=== PATIENT | male | born 1945 | race Caucasian/White ===

== ENCOUNTER 2016-11-19 11:30 | Outpatient (CLI) | payer MEDICARE | END 2016-11-19 11:31 | disposition home or self-care (01) | DX: E78.5 Hyperlipidemia, unspecified (principal) ==

== ENCOUNTER 2017-05-28 14:53 | Outpatient (CLI) | payer MEDICARE ==
--- NOTE | 2017-05-30 09:47 | XRAY Report ---
LUMBAR SPINE, TWO VIEWS: 05/28/2017 CLINICAL HISTORY: Low back pain. FINDINGS: Five nonrib-bearing lumbar-type vertebrae are noted. Severe disk space narrowing is noted at L3-4 level. Prominent anterior spurring is noted at L3-4. Grade 1 spondylolisthesis is noted of L3 in relationship to L4; 7 mm of anterior subluxation of L3 is noted in relationship to L4. This f inding was noted on a preceding MRI exam of 04/08/2012. The degree of spondylolisthesis is unchanged . There is a suggestion of more disk space narrowing at this level as compared to preceding exam. T his spondylolisthesis on preceding lumbar spine MRI has been shown to be a result of a bilateral spon dylolisthesis at the pars interarticularis of L3. Mild disk space narrowing is noted at L5-S1 with m inimal progression as compared to lumbar spine MRI of 04/08/2012. Mild narrowing of the SI joints is seen. Bridging osteophyte is noted at the T10-T11 level. IMPRESSION: 1. 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 THIS FINDING WAS NOTED ON AN OLD MRI EXAM OF 04/08/2012. NO CHANGE IS SEEN IN THE DEGREE OF SPONDYLOLISTHESIS PRESENT. THERE IS SIGNIFICANT DISC SPACE NARROWING AT L3-4 RELAT ED TO DEGENERATIVE DISK DISEASE. THIS HAS PROGRESSED SINCE PRECEDING EXAM. 2. MILD DEGENERATIVE DISK DISEASE IS NOTED AT L4-5 AND L5-S1 WITH MINIMAL DISK SPACE NARROWING. MIN OR PROGRESSION IN THE DEGENERATIVE DISK DISEASE IS SEE AT THESE LEVELS SINCE PRECEDING MRI EXAM OF . JOB #: [id number] EXT JOB #:[id number]
--- NOTE | 2017-05-30 09:54 | XRAY Report ---
CERVICAL SPINE, AP, LATERAL, OBLIQUES, AND ODONTOID: 05/28/2017 FINDINGS: Minimal vascular calcification is noted of the left carotid artery bifurcation of the neck . Mild anterior spurring is noted at C3, C4, C5, and C6. Moderate degree of disk space narrowing is noted at C4-5 with minimal reversed spondylolisthesis of C4 in relationship to C5. Mild disk space narrowing is noted at C5-6. Minimal spondylolisthesis is noted at C6 in relationship to C7. Oblique views of the C-spine demonstrate significant posterior spur formation bilaterally at C3-4. M oderate degree of posterior spur formation bilaterally is noted at C4-5 and C5-6. This posterior spu r formation produces narrowing of the neural foramen especially at the C3-4 level and C4-5 level. Od ontoid process appears normal. There is some mild narrowing between the odontoid process and anterio r arch of C1. IMPRESSION: OSTEOARTHRITIS OF THE C-SPINE IS SEEN WITH MOST PRONOUNCED CHANGES NOTED AT THE C4-5 AND C5-6 LEVELS AND AT THE NEURAL FORAMEN BILATERALLY AT C3-4 AND C4-5. JOB #: [id number] EXT JOB #:[id number]
== END 2017-05-28 14:54 | disposition home or self-care (01) ==
LOC: DI.S 14:53
PROVIDERS: ATTEND Physician Assistant
DX: M51.36 Other intervertebral disc degeneration, lumbar region (principal); M43.16 Spondylolisthesis, lumbar region; M51.37 Other intervertebral disc degeneration, lumbosacral region; M47.892 Other spondylosis, cervical region; M43.12 Spondylolisthesis, cervical region
CPT/HCPCS: 72050; 72100

== ENCOUNTER 2019-01-05 14:24 | Outpatient (CLI) | payer MEDICARE ==
--- NOTE | 2019-01-06 11:03 | Ultrasound Report ---
Reason: FAM H/O AAA Procedure Date: 01/05/2019 Accession Number: [id number] / [id number] Procedure: US - Aorta Screening CPT Code: FULL RESULT: EXAM: AORTIC DOPPLER ULTRASOUND EXAM DATE: 01/05/2019 03:53 PM. CLINICAL HISTORY: Family history of AAA. COMPARISON: None. TECHNIQUE: Real-time sonographic imaging of retroperitoneal vascular structures, including color-flow, Doppler flow and spectral analysis was performed by the petroleum geologist. Multiple area representative static images were saved for review. FINDINGS: Aorta: The abdominal aorta was adequately visualized. There is a distal aortic aneurysm which measures up to 4.9 cm and contains mural thrombus. Aorta: Proximal: Sagittal AP: 2.9 cm. Mid: Transverse: 2.2 x 2.5 cm. Distal: Transverse: 4.5 x 4.9 cm. Plaque visualized: Yes. Iliacs: Right Iliac: Transverse: 1.6 x 2.1 cm. Left Iliac: Transverse: 1.1 x 1.0 cm. Doppler: Distal Aorta PSV: 81.1-115 cm/sec. Iliac Vessels: The visualized proximal common iliac arteries are prominent in caliber as described. Other: None. IMPRESSION: Detection of a distal abdominal aortic aneurysm, recommend characterization by CTA and referral to vascular specialistArabella DUNAWAY The call report notification system was initiated by Dr. Marcelo Darden at 10:56 AM on 01/06/2019. The above call report findings were discussed with the nurse of Samara Hannah by Dr. Marcelo Darden at 11:00 AM on 01/06/2019.
== END 2019-01-05 14:25 | disposition home or self-care (01) ==
LOC: DI 14:24
PROVIDERS: ATTEND Physician Assistant
DX: I71.4 Abdominal aortic aneurysm, without rupture (principal)
CPT/HCPCS: 76706

== ENCOUNTER 2019-01-12 14:23 | Outpatient (CLI) | payer MEDICARE | END 2019-01-12 14:24 | disposition home or self-care (01) | LOC: SC 14:23 | PROVIDERS: ATTEND Internal Medicine Pulmonary Disease | DX: G47.10 Hypersomnia, unspecified (principal); R06.81 Apnea, not elsewhere classified; R41.89 Other symptoms and signs involving cognitive functions and awareness; R06.83 Snoring; G47.8 Other sleep disorders | CPT/HCPCS: 99203; G0463; 99212 ==

== ENCOUNTER 2019-05-18 10:57 | Outpatient (CLI) | payer MEDICARE ==
--- NOTE | 2019-05-18 13:57 | XRAY Report ---
Reason: GENERALIZED HYPERHIDROSIS Procedure Date: 05/18/2019 Accession Number: [id number] / [id number] Procedure: XRS - Chest 2 View X-Ray CPT Code: 74128 FULL RESULT: EXAM: CHEST RADIOGRAPHY EXAM DATE: 05/18/2019 11:14 AM. CLINICAL HISTORY: Generalized hyperhidrosis. COMPARISON: 11/16/2015 2:18 PM. TECHNIQUE: 2 views. FINDINGS: Lungs/Pleura: Projecting over the lower right lung is a new 2.2 x 1.0 cm tubular nodule. No pleural effusion. No pneumothorax. High lung volumes with flattening of diaphragms. Mediastinum: The cardiomediastinal contour is stable with a tortuous aorta, not enlarged. Other: None. IMPRESSION: Suspicion of new tubular appearing right lung nodule, recommend chest CT. RADIA
== END 2019-05-18 10:58 | disposition home or self-care (01) ==
LOC: DI.S 10:57
PROVIDERS: ATTEND Registered Nurse
DX: R61 Generalized hyperhidrosis (principal); R91.1 Solitary pulmonary nodule
CPT/HCPCS: 36415; 71046; 80053; 84155; 84165; 85025; 86140; 87040

== ENCOUNTER 2019-05-18 12:05 | Outpatient (CLI) | payer MEDICARE ==
[2019-05-18 17:22] LABS: BASOPHILS % (AUTO) 0.3 %; EOSINOPHILS % (AUTO) 0.7 %; HGB - HEMOGLOBIN 10.9 g/dL (14.0-18.0); LYMPHOCYTES % (AUTO) 38.4 %; MEAN CORPUSCULAR HEMOGLOBIN 29.5 pg (27.0-31.0); MEAN CORPUSCULAR HGB CONC 31.8 g/dL (32.0-36.0); MEAN CORPUSCULAR VOLUME 92.7 fL (80.0-94.0); MEAN PLATELET VOLUME 9.6 fL (7.4-11.4); MONOCYTES % (AUTO) 7.1 %; NEUTROPHILS % (AUTO) 53.2 %; PLT - PLATELET COUNT 334 10^3/uL (130-450); RED CELL DISTRIBUTION WIDTH 14.3 % (12.0-15.0); WHITE BLOOD COUNT 15.4 x10^3/uL (4.8-10.8)
[2019-05-18 17:43] LABS: ABNORMAL LYMPHS % (MANUAL) 0 %; BAND NEUTROPHILS % (MANUAL) 0 %
[2019-05-18 18:14] LABS: ALBUMIN/GLOBULIN RATIO 0.8 (1.0-2.2); BILIRUBIN,TOTAL 0.5 mg/dL (0.2-1.0); CALCIUM 8.9 mg/dL (8.5-10.3); CREATININE 1.1 mg/dL (0.6-1.2); CRP - C-REACTIVE PROTEIN 23.8 mg/dL (0-1.0); TOTAL PROTEIN 6.9 g/dL (6.7-8.2)
[2019-05-18 18:28] LABS: LYMPHOCYTES # (MANUAL) 7.9 10^3/uL (1.5-3.5); LYMPHOCYTES % (MANUAL) 51 %; MONOCYTES # (MANUAL) 1.4 10^3/uL (0.0-1.0); NEUTROPHILS # (MANUAL) 6.2 10^3/uL (1.5-6.6); NEUTROPHILS % (MANUAL) 40 %
[2019-05-18 18:29] LABS: DIFFERENTIAL COMMENT MANUAL DIFFERENTIAL; PLATELET ESTIMATE, MANUAL NORMAL (130-450,000) (NORMAL); PLATELET MORPHOLOGY NORMAL APPEARANCE (NORMAL); RBC MORPHOLOGY (MULTIPLE) NORMAL APPEARANCE (NORMAL)
[2019-05-20 16:36] LABS: ALPHA 1 GLOBULIN 0.5 g/dL (0.2-0.3); ALPHA 2 GLOBULIN 1.3 g/dL (0.5-0.9); BETA 1 GLOBULIN 0.4 g/dL (0.4-0.6); BETA 2 GLOBULIN 0.4 g/dL (0.2-0.5); GAMMA GLOBULIN 0.6 g/dL (0.8-1.7)
== END 2019-05-18 12:06 | disposition home or self-care (01) ==
LOC: LAB.S 12:05
PROVIDERS: ATTEND Physician Assistant
DX: R61 Generalized hyperhidrosis (principal)
CPT/HCPCS: 36415; 80053; 84155; 84165; 85025; 86140; 87040

== ENCOUNTER 2020-01-29 19:28 | Outpatient (CLI) | payer MEDICARE | END 2020-01-29 19:29 | disposition short-term general hospital (02) | LOC: EMS 19:28 | PROVIDERS: ATTEND Surgery | DX: R41.0 Disorientation, unspecified (principal) | CPT/HCPCS: A0425; A0429 ==

== ENCOUNTER 2021-03-11 12:44 | Emergency (ER) | payer MEDICARE ==
[2021-03-11] MEDS ORDERED: AMPICILLIN/SULBACTAM 3 GM in SODIUM CHLORIDE 0.9% MINIBAG 100 ML IV STA (13:21)
[2021-03-11] MEDS ORDERED: TETANUS/DIPHTHERIA/PERTUSSIS 0.5 ML SYRINGE IM ONE (13:21)
--- NOTE | 2021-03-11 13:22 | ED Physician Documentation ---
PD HPI UPPER EXT INJURY - Stated complaint Stated Complaint: DOG BITE - Chief complaint Chief Complaint: Laceration - History obtained from History obtained from: Patient - Additonal information Additional information: 4 days ago he was accidentally bitten On the left hand by a dog while playing with it. Over the last 24 hours has developed increasing pain and swelling there. No fevers. Review of Systems Constitutional: reports: Reviewed and negative Eyes: reports: Reviewed and negative Ears: reports: Reviewed and negative Nose: reports: Reviewed and negative Throat: reports: Reviewed and negative PD PAST MEDICAL HISTORY - Present Medications Home Medications: Ambulatory Orders Medication Instructions Recorded Confirmed Amox/Clav 875/125 [Augmentin] 1 each PO Q12H #20 tablet 03/11/21 - Allergies Allergies/Adverse Reactions: Allergies Allergy/AdvReac Type Severity Reaction Status Date / Time No Known Drug Allergies Allergy Verified 03/11/21 13:02 PD ED PE NORMAL - Vitals Vital signs reviewed: Yes - General General: Alert and oriented X 3, No acute distress - Extremities Extremities: Other (There is a shallow flap type laceration with just a touch of purulent drainage right in the middle of the dorsum of the left hand with edema of the hand up to the wrist. He has full range of motion. He also has olecranon bursitis which he says is more chronic.) - Neuro Neuro: Alert and oriented X 3, Normal speech Results - Vitals Vitals: Vital Signs - 24 hr 03/11/21 12:57 Temperature 36.9 C Heart Rate 76 Respiratory 18 Rate Blood Pressure 145/81 H O2 Saturation 99 Oxygen O2 Source Room air - Labs Labs: Laboratory Tests 03/11/21 03/11/21 13:27 13:27 WBC 14.6 H RBC 4.34 L Hgb 13.5 L Hct 40.9 L MCV 94.2 H MCH 31.1 H MCHC 33.0 RDW 13.4 Plt Count 150 MPV 9.9 Neut # (Auto) 7.3 H Lymph # (Auto) 6.1 H Mcdonald # (Auto) 0.9 Eos # (Auto) 0.2 Baso # (Auto) 0.1 Absolute Nucleated RBC 0.00 Nucleated RBC % 0.0 Manual Slide Review Indicated Sodium 137 Potassium 3.7 Chloride 103 Carbon Dioxide 25 Anion Gap 9.0 BUN 19 Creatinine 1.1 Estimated GFR (MDRD) 65 L Glucose 114 H Calcium 9.3 PD MEDICAL DECISION MAKING - ED course ED course: 76-year-old gentleman with an infected dog bite of the dorsum of the left hand. No evidence of tenosynovitis. Just local cellulitis. He was administered IV Unasyn here and advised to return tomorrow for scheduled recheck. There was just a bit of purulent drainage of the wound which was sent for culture. Departure - Departure Disposition: Home, Self Care Clinical Impression: Infected dog bite Condition: Good Record reviewed to determine appropriate education?: Yes Instructions: ED Bite Dog Prescriptions: Amox/Clav 875/125 [Augmentin] 1 each PO Q12H #20 tablet Comments: Take first dose of oral antibiotics tonight before bed, second dose in the morning. Return tomorrow after 1 PM for wound check and reevaluation. Sooner if worse.Elevate the hand is much as possible.
[2021-03-11 13:37] LABS: BASOPHILS # (AUTO) 0.1 10^3/uL (0.0-0.1); BASOPHILS % (AUTO) 0.4 %; EOSINOPHILS # (AUTO) 0.2 10^3/uL (0.0-0.7); EOSINOPHILS % (AUTO) 1.1 %; HCT - HEMATOCRIT 40.9 % (42.0-52.0); HGB - HEMOGLOBIN 13.5 g/dL (14.0-18.0); LYMPHOCYTES # (AUTO) 6.1 10^3/uL (1.5-3.5); LYMPHOCYTES % (AUTO) 41.6 %; MEAN CORPUSCULAR HEMOGLOBIN 31.1 pg (27.0-31.0); MEAN CORPUSCULAR VOLUME 94.2 fL (80.0-94.0); MEAN PLATELET VOLUME 9.9 fL (7.4-11.4); MONOCYTES # (AUTO) 0.9 10^3/uL (0.0-1.0); MONOCYTES % (AUTO) 6.4 %; NEUTROPHILS # (AUTO) 7.3 10^3/uL (1.5-6.6); NEUTROPHILS % (AUTO) 50.2 %; PLT - PLATELET COUNT 150 10^3/uL (130-450); RED BLOOD COUNT 4.34 10^6/uL (4.70-6.10); RED CELL DISTRIBUTION WIDTH 13.4 % (12.0-15.0); WHITE BLOOD COUNT 14.6 x10^3/uL (4.8-10.8)
[2021-03-11 13:40] LABS: SLIDE REVIEW? Indicated
[2021-03-11 13:42] LABS: CALCIUM 9.3 mg/dL (8.5-10.3); CREATININE 1.1 mg/dL (0.6-1.2); POTASSIUM 3.7 mmol/L (3.5-5.0)
[2021-03-11 14:08] LABS: PLATELET ESTIMATE, MANUAL NORMAL (130-450,000) (NORMAL); PLATELET MORPHOLOGY NORMAL APPEARANCE (NORMAL); RBC MORPHOLOGY (MULTIPLE) NORMAL APPEARANCE (NORMAL); WBC MORPHOLOGY (MULTIPLE) NORMAL APPEARANCE (NORMAL)
[2021-03-11 14:22] VITALS: BP 171/86
== END 2021-03-11 14:22 | disposition home or self-care (01) ==
LOC: ED 12:44
DX: S61.452A Open bite of left hand, initial encounter (principal); L03.114 Cellulitis of left upper limb; W54.0XXA Bitten by dog, initial encounter; Y93.89 Activity, other specified; Z23 Encounter for immunization; M70.20 Olecranon bursitis, unspecified elbow
CPT/HCPCS: 36415; 80048; 85025; 87070; 87077; 87181; 87205; 90471; 96365; 99283

== ENCOUNTER 2021-03-12 13:06 | Emergency (ER) | payer MEDICARE ==
--- OUTSIDE RECORDS SUMMARY | 2021-03-12 13:09 | EXTERNAL MEDICAL SUMMARY RPT | Continuity of Care Document ---
:1945 Demographics Phone Unavailable Preferred Language Unknown Marital Status Unknown Scientologist Affiliation Unknown Race Unknown Ethnic Group Unknown Author Organization [place] Address [address] [phone] Phone Social History date description facility [phone]
--- OUTSIDE RECORDS SUMMARY | 2021-03-12 13:13 | EXTERNAL MEDICAL SUMMARY RPT | Continuity of Care Document ---
:1945 Demographics Phone Unavailable Preferred Language Unknown Marital Status Unknown Rastafari Affiliation Unknown Race Unknown Ethnic Group Unknown Author Organization [place] Address [address] [phone] Phone Social History date description facility [phone]
[2021-03-12 13:17] VITALS: BP 159/76
--- NOTE | 2021-03-12 13:18 | ED Physician Documentation ---
PD HPI UPPER EXT INJURY - Stated complaint Stated Complaint: FOLLOW UP DOG BITE - Chief complaint Chief Complaint: Ext Problem - History obtained from History obtained from: Patient - Additonal information Additional information: 76-year-old gentleman returns for requested schedule recheck of dog bite with cellulitis of the left hand. He feels like he is improving. No fevers. I went over to the lab and currently it looks like gram-positive mixture of skin zenaida is growing coag, no gram-negative's per se. Review of Systems Constitutional: reports: Reviewed and negative Eyes: reports: Reviewed and negative Ears: reports: Reviewed and negative Nose: reports: Reviewed and negative Throat: reports: Reviewed and negative PD PAST MEDICAL HISTORY - Past Medical History Cardiovascular: Other Respiratory: None Neuro: Migraines Endocrine/Autoimmune: None GI: None : None HEENT: Chronic vision loss Psych: None Musculoskeletal: None Derm: None - Past Surgical History Past Surgical History: Yes Cardiovascular: AAA - Present Medications Home Medications: Ambulatory Orders Medication Instructions Recorded Confirmed Amox/Clav 875/125 [Augmentin] 1 each PO Q12H #20 tablet 03/11/21 - Allergies Allergies/Adverse Reactions: Allergies Allergy/AdvReac Type Severity Reaction Status Date / Time No Known Drug Allergies Allergy Verified 03/12/21 13:17 - Social History Does the pt smoke?: No Smoking Status: Never smoker Does the pt drink ETOH?: No Does the pt have substance abuse?: No - Immunizations Immunizations are current?: Yes PD ED PE NORMAL - Vitals Vital signs reviewed: Yes - General General: Alert and oriented X 3, No acute distress - Extremities Extremities: Other (Cellulitis and swelling of the left hand has definitely improved since yesterday as is his left olecranon bursitis.) - Neuro Neuro: Alert and oriented X 3, Normal speech Results - Vitals Vitals: Vital Signs - 24 hr 03/12/21 13:15 Temperature 36.9 C Heart Rate 76 Respiratory 20 Rate Blood Pressure 159/76 H O2 Saturation 99 Oxygen O2 Source Room air Departure - Departure Disposition: 01 Home, Self Care Clinical Impression: Infected dog bite Condition: Good Record reviewed to determine appropriate education?: Yes Instructions: ED Wound Care Comments: Dalton, thanks for returning, it looks like the dog bite infection is improving, continue current antibiotics at dose and schedule previously prescribed. Final sensitivities on bacteria from the wound culture are still pending and we will call if the specific change is necessary. Otherwise only need to follow-up or return if worse. You can continue with the manuka honey that your had started.
== END 2021-03-12 13:23 | disposition home or self-care (01) ==
LOC: ED 13:06
DX: S61.452A Open bite of left hand, initial encounter (principal); L03.114 Cellulitis of left upper limb; W54.0XXA Bitten by dog, initial encounter; M70.22 Olecranon bursitis, left elbow
CPT/HCPCS: 99281; 99283

== ENCOUNTER 2023-03-06 00:19 | Outpatient (CLI) | payer MEDICARE | END 2023-03-06 23:59 | disposition critical access hospital (66) | LOC: EMS 00:19 | DX: R53.1 Weakness (principal); R26.9 Unspecified abnormalities of gait and mobility | CPT/HCPCS: A0425; A0429 ==

== ENCOUNTER 2023-03-06 00:42 | Emergency (ER) | payer MEDICARE ==
--- NOTE | 2023-03-06 00:51 | ED Physician Documentation ---
History of Present Illness - Stated complaint Stated Complaint: CODE STROKE - History obtained from History obtained from: EMS - Additonal information Additional information: 78yM p/w sudden onset L leg weakness, fell onto the leg and also had L arm weakness upon ems arrival. listing to the left side en route. LSN 11:30pm when his witnessed symptom onset. no pmh aside from migraines. Review of Systems Unable to obtain: Other (unable to obtain 2/2 patient acuity) PD PAST MEDICAL HISTORY - Past Medical History Cardiovascular: Other Respiratory: None Neuro: Migraines Endocrine/Autoimmune: None GI: None : None HEENT: Chronic vision loss Psych: None Musculoskeletal: None Derm: None - Past Surgical History Past Surgical History: Yes Cardiovascular: AAA - Present Medications Home Medications: Ambulatory Orders Medication Instructions Recorded Confirmed Amox/Clav 875/125 [Augmentin] 1 each PO Q12H #20 tablet 03/11/21 04/24/22 - Allergies Allergies/Adverse Reactions: Allergies Allergy/AdvReac Type Severity Reaction Status Date / Time No Known Drug Allergies Allergy Verified 04/27/21 08:48 - Social History Does the pt smoke?: No Smoking Status: Never smoker Does the pt drink ETOH?: No Does the pt have substance abuse?: No - Immunizations Immunizations are current?: Yes PD ED PE NORMAL - Vitals Vital signs reviewed: Yes - General General: Alert and oriented X 3, No acute distress, Well developed/nourished - HEENT HEENT: Atraumatic, PERRL, EOMI - Cardiac Cardiac: RRR - Respiratory Respiratory: No respiratory distress, Clear bilaterally - Abdomen Abdomen: Non tender, Non distended - Derm Derm: Normal color, Warm and dry - Neuro Neuro: Alert and oriented X 3, Other (LUE/LLE profound weakness compared to R (see NIHSS)) Results - Vitals Vitals: Vital Signs - 24 hr 03/06/23 03/06/23 03/06/23 00:50 01:07 01:37 Temperature 37.0 C Heart Rate 64 66 62 Respiratory 18 18 18 Rate Blood Pressure 184/91 H 153/84 H 152/79 H O2 Saturation 96 97 92 03/06/23 02:05 Temperature Heart Rate 61 Respiratory 18 Rate Blood Pressure 146/82 H O2 Saturation 97 Oxygen O2 Source Room air - EKG (time done) 0107 EKG releavant findings:: EKG personally interpreted by author of this note. Relevant findings are: Rate: Rate (enter#) (63) Rhythm: NSR Gard[place]: Normal Intervals: Normal DE QRS: Normal Ischemia: Normal ST segments - Labs Labs: Laboratory Tests 03/06/23 03/06/23 03/06/23 00:48 01:15 01:15 WBC 12.1 H RBC 4.08 L Hgb 12.6 L Hct 39.2 L MCV 96.1 H MCH 30.9 MCHC 32.1 RDW 13.5 Plt Count 144 MPV 9.6 Neut # (Auto) Not Reportable Lymph # (Auto) Not Reportable Mccone # (Auto) Not Reportable Eos # (Auto) Not Reportable Baso # (Auto) Not Reportable Absolute Nucleated RBC Not Reportable Total Counted 100 Band Neuts % (Manual) 0 Abnorm Lymph % (Manual) 0 Nucleated RBC % Not Reportable Neutrophils # (Manual) 4.1 Lymphocytes # (Manual) 7.7 H Monocytes # (Manual) 0.2 Eosinophils # (Manual) 0.0 Basophils # (Manual) 0.0 Differential Comment MANUAL DIFFERENTIAL WBC Morphology NORMAL APPEARANCE Platelet Estimate NORMAL (130-450,000) Platelet Morphology NORMAL APPEARANCE RBC Morph Micro Appear NORMAL APPEARANCE Sodium 142 Potassium 3.8 Chloride 104 Carbon Dioxide 26 Anion Gap 12.0 BUN 24 H Creatinine 1.4 H Estimated GFR (MDRD) 49 L Glucose 111 H POC Whole Bld Glucose 103 H Calcium 8.9 Total Bilirubin 0.6 AST 18 ALT 13 Alkaline Phosphatase 62 Total Protein 6.5 L Albumin 4.1 Globulin 2.4 Albumin/Globulin Ratio 1.7 Lipase 39 PD Medical Decision Making - ED course ED course: 78-year-old male, previously healthy, presents as a stroke code brought in by EMS with profound L sided weakness and taken directly to CT scanner for CT noncontrast and CTA head and neck with and without contrast. Patient is pending telestroke evaluation but likely a TNK candidate. NIHSS 2 (1 - drift to LUE, 1 - drift to LLE. otherwise normal). 1am - CT report crossed over and patient has R basal ganglia hemorrhagic stroke therefore not TNK candidate. confirmed with EMS that patient did not hit his head and is not on AC or blood thinners. Possible hypertensive mediated stroke given location. plan to contact [facility] for transfer. 1:10am - d/w [facility] Natacha RN at transfer center . will connect to stroke physician. 1:15am - d/w Dr. Joya, stroke neurologist at [facility]. recommend goal SBP <160 sbp. they are boarding 60-70 patients in [facility] ED. requesting we call other facilities. our entrepreneurship program director called , [facility], [facility], [place] (at capacity/boarding). will attempt to call [facility]. 1:40am - d/w radiology regarding focal R ICA dissection. 2am - d/w neurologist Dr. Ritchie at [facility] regarding R ICA dissection and R intraparenchymal hemorrhage. approved for transfer. he will go to ICU. Departure - Departure Disposition: 02 Transfer Acute Care Hosp Clinical Impression: Weakness, Hemorrhagic stroke Condition: Serious
--- NOTE | 2023-03-06 01:12 | CT Report ---
PROCEDURE: Head W/O Stroke Protocol INDICATIONS: code stroke TECHNIQUE: Noncontrast 4.5 mm thick angled axial sections acquired from the foramen magnum to the vertex, with c oronal reformats. For radiation dose reduction, the following was used: automated exposure control, adjustment of mA and/or kV according to patient size. COMPARISON: None. FINDINGS: Image quality: Excellent. CSF spaces: There is mild cerebral volume loss with prominence of the ventricles and sulci. Basal ci sterns are patent. No extra-axial fluid collections. Brain: There is an intraparenchymal hematoma within the right ricci radiata. Fernandez-white matter inter face is preserved. There are subcortical and periventricular white matter hypodensities consistent wi th mild chronic small vessel ischemic changes. Skull and face: Calvarium and visualized facial bones are intact, without suspicious lesions. Sinuses: Visualized sinuses and mastoids are clear. IMPRESSION: 1. Intraparenchymal hematoma demonstrated within the right ricci radiata. Findings suggest sequelae of hypertension but the differential includes an underlying mass. Consider a follow-up contrast enhanced MRI. A phone call was made to Dr. Tobar in the emergency room on 03/06/2023 at 1:07 AM. This study fulfills neurological imaging criteria for inclusion or exclusion of acute stroke therapie s based on available published neurological imaging guidelines. Reviewed by: Fidencio Adhikari MD on 03/06/2023 1:11 AM PDT Approved by: Fidencio Adhikari MD on 03/06/2023 1:11 AM PDT Station ID: [id number]
[2023-03-06] MEDS ORDERED: LABETALOL 20 MG/4 ML SYRINGE IVP STA (01:16)
--- NOTE | 2023-03-06 01:21 | CT Report ---
PROCEDURE: ANGIO HEAD W/WO INDICATIONS: code stroke CONTRAST: Omni 300 100ml TECHNIQUE: After the administration of intravenous contrast, 1 mm thick sections acquired through the [place] of Chris. Postcontrast 4.5 mm thick sections then re-acquired from the foramen magnum to the vertex. 3-dimensional ttbcvie-pyhqwgrzr-sjfwgmjgoj (MIP) and/or volume rendering reformats were acquired of t he central intracranial vasculature. For radiation dose reduction, the following was used: automate d exposure control, adjustment of mA and/or kV according to patient size. COMPARISON: Concurrent CT head and CTA neck FINDINGS: Image quality: Excellent. BRAIN: CSF spaces: There is mild cerebral volume loss with prominence of the ventricles and sulci. Basal ci sterns are patent. No extra-axial fluid collections. Brain: There is an intraparenchymal hematoma redemonstrated within the right ricci radiata. Radiolo gy no No intracranial mass or mass effect. No evidence of a vascular information. Fernandez-white matter i nterface is preserved. There are subcortical and periventricular white matter hypodensities consisten t with mild chronic small vessel ischemic changes. No abnormal intracranial enhancement. Skull and face: Calvarium and facial bones appear intact, without suspicious lesions. Orbits appear normal. Sinuses: Sinuses and mastoids are clear. HEAD CT ANGIOGRAPHY: Anterior circulation: Intracranial internal carotid arteries appear patent bilaterally. There is an intimal flap consistent with a focal short segment dissection within the distal extracranial segment of the right internal carotid artery. There is mild atherosclerotic calcification along the cavernous segments of the internal carotid arteries. The paired anterior cerebral arteries appear patent bila terally. The anterior communicating artery also appears patent. The middle cerebral arteries appear patent bilaterally. No high-grade stenosis, occlusion, or filling defects. No cerebral aneurysms id entified. Posterior circulation: Visualized portions of the vertebral arteries demonstrate normal caliber, and join to form a patent basilar artery. The posterior cerebral arteries appears patent bilaterally. No high-grade stenosis, occlusion, or filling defects. No cerebral aneurysms identified. IMPRESSION: 1. No high-grade stenosis or occlusion of the central intracranial arteries. 2. No evidence of intracranial mass or vascular malformation. 3. Right coronal radiata intraparenchymal hematoma redemonstrated. Findings are suggestive of a hyper tensive hemorrhage. 4. 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 Reviewed by: Fidencio Adhikari MD on 03/06/2023 1:20 AM PDT Approved by: Fidencio Adhikari MD on 03/06/2023 1:20 AM PDT Station ID: [id number]
[2023-03-06 01:22] LABS: BASOPHILS % (AUTO) 0.7 %; EOSINOPHILS % (AUTO) 1.2 %; HCT - HEMATOCRIT 39.2 % (42.0-52.0); HGB - HEMOGLOBIN 12.6 g/dL (14.0-18.0); LYMPHOCYTES % (AUTO) 55.9 %; MEAN CORPUSCULAR HEMOGLOBIN 30.9 pg (27.0-31.0); MEAN CORPUSCULAR HGB CONC 32.1 g/dL (32.0-36.0); MEAN CORPUSCULAR VOLUME 96.1 fL (80.0-94.0); MEAN PLATELET VOLUME 9.6 fL (7.4-11.4); MONOCYTES % (AUTO) 5.2 %; NEUTROPHILS % (AUTO) 36.8 %; PLT - PLATELET COUNT 144 10^3/uL (130-450); RED BLOOD COUNT 4.08 10^6/uL (4.70-6.10); RED CELL DISTRIBUTION WIDTH 13.5 % (12.0-15.0); WHITE BLOOD COUNT 12.1 x10^3/uL (4.8-10.8)
--- NOTE | 2023-03-06 01:27 | CT Report ---
PROCEDURE: ANGIO NECK W INDICATIONS: code stroke CONTRAST: Omni 300 100ml TECHNIQUE: After the administration of intravenous contrast, 1.5 mm axial sections acquired from the aortic arch to the [place] of Chris. Coronal 3-D maximum intensity projection (MIP) and/or volume rendering ref ormats were then performed. For radiation dose reduction, the following was used: automated exposur e control, adjustment of mA and/or kV according to patient size. COMPARISON: Concurrent CT and CTA studies of the head. FINDINGS: Image quality: Excellent. NECK CT ANGIOGRAPHY: Carotid system: The great vessels demonstrate a conventional anatomy as they arise from the aortic a rch. The origins of the common carotid arteries appear patent. The common carotid arteries demonstr ate normal caliber and courses. There is mild partially calcified plaque in the carotid bulbs with mi ld narrowing of less than 50% bilaterally. The internal carotid arteries appear patent bilaterally. T here is an intimal flap consistent with a focal short segment dissection of the distal extra cranial segment of the right internal carotid artery. Posterior circulation: The origins of the vertebral arteries both appear patent. The more superior extracranial portions of both vertebral arteries also demonstrate normal courses and calibers. They join to form a patent basilar artery. Soft tissues: Visualized neck soft tissues demonstrate no suspicious abnormalities. A right ricci r adiata intraparenchymal hematoma is again noted as seen on the concurrent PET/CT studies. Bones: No suspicious bony lesions. Visualized cervical spine demonstrates straightening of the cerv ical lordosis. There is multilevel degenerative disc disease and facet joint arthropathy. IMPRESSION: 1. No high-grade stenosis or occlusion of the head and neck arteries. There is mild narrowing of less than 50% carotid bulbs. 2. 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 The estimate of stenosis included in the report of the imaging study was calculated using the NASCET method Reviewed by: Fidencio Adhikari MD on 03/06/2023 1:26 AM PDT Approved by: Fidencio Adhikari MD on 03/06/2023 1:26 AM PDT Station ID: [id number]
[2023-03-06 01:34] LABS: ALBUMIN 4.1 g/dL (3.2-5.5); ALBUMIN/GLOBULIN RATIO 1.7 (1.0-2.2); BILIRUBIN,TOTAL 0.6 mg/dL (0.2-1.0); CALCIUM 8.9 mg/dL (8.5-10.3); CREATININE 1.4 mg/dL (0.6-1.2); POTASSIUM 3.8 mmol/L (3.5-5.0); TOTAL PROTEIN 6.5 g/dL (6.7-8.2)
[2023-03-06 01:35] LABS: ABNORMAL LYMPHS % (MANUAL) 0 %; BAND NEUTROPHILS % (MANUAL) 0 %
[2023-03-06] MEDS ORDERED: iohexoL-300 100 ML VIAL IVP ONE (01:36)
[2023-03-06 01:44] LABS: DIFFERENTIAL COMMENT MANUAL DIFFERENTIAL; LYMPHOCYTES # (MANUAL) 7.7 10^3/uL (1.5-3.5); LYMPHOCYTES % (MANUAL) 64 %; MONOCYTES # (MANUAL) 0.2 10^3/uL (0.0-1.0); NEUTROPHILS # (MANUAL) 4.1 10^3/uL (1.5-6.6); PLATELET ESTIMATE, MANUAL NORMAL (130-450,000) (NORMAL); PLATELET MORPHOLOGY NORMAL APPEARANCE (NORMAL); RBC MORPHOLOGY (MULTIPLE) NORMAL APPEARANCE (NORMAL); WBC MORPHOLOGY (MULTIPLE) NORMAL APPEARANCE (NORMAL)
--- NOTE | 2023-03-06 01:51 | XRAY Report ---
PROCEDURE: Chest 1 View X-Ray INDICATIONS: Chest Pain TECHNIQUE: One view of the chest was acquired. COMPARISON: Chest x-ray 11/16/2015. FINDINGS: Surgical changes and devices: None. Lungs and pleura: No pleural effusions or pneumothorax. Lungs are clear. Mediastinum: Mediastinal contours appear normal. Heart size is normal. Bones and chest wall: No suspicious bony lesions. Overlying soft tissues appear unremarkable. IMPRESSION: 1. No acute cardiopulmonary disease. Reviewed by: Fidencio Adhikari MD on 03/06/2023 1:49 AM PDT Approved by: Fidencio Adhikari MD on 03/06/2023 1:49 AM PDT Station ID: [id number]
[2023-03-06 03:12] VITALS: BP 141/71
== END 2023-03-06 03:45 | disposition short-term general hospital (02) ==
LOC: EDUNIT# → ED 00:42
DX: I62.9 Nontraumatic intracranial hemorrhage, unspecified (principal); G81.94 Hemiplegia, unspecified affecting left nondominant side; Z20.822 Contact with and (suspected) exposure to COVID-19
CPT/HCPCS: 36415; 80053; 83690; 85025; 93005; 99285

== ENCOUNTER 2023-03-06 03:35 | Outpatient (CLI) | payer MEDICARE | END 2023-03-06 03:36 | disposition short-term general hospital (02) | LOC: EMS 03:35 | PROVIDERS: ATTEND Emergency Medicine | DX: I62.9 Nontraumatic intracranial hemorrhage, unspecified (principal) | CPT/HCPCS: A0425; A0429 ==